=== PATIENT | female | born 1995 | race African-American/Black ===

== ENCOUNTER 2016-05-30 07:08 | Emergency (ER) | payer OTHER ==
[2016-05-30 07:17] VITALS: BP 109/64
--- NOTE | 2016-05-30 07:31 | UC ---
Throat Pain/Nasal Jeffrey HPI - HPI Summary HPI Summary: SORE THROAT X 4 DAYS , NO FEVER, NO CHILLS, + COUGH, NASAL CONGESTION - History of Current Complaint Chief Complaint: UCRespiratory Stated Complaint: SORE THROAT,FEVER Time Seen by Provider: 05/30/16 07:23 Hx Obtained From: Patient Hx Last Menstrual Period: 05/17/16 ?: No Onset/Duration: Sudden Onset, Lasting Days - 4, Still Present Severity: Moderate Cough: Nonproductive Associated Signs & Symptoms: Positive: Nasal Discharge. Negative: Sinus Discomfort, Fever, Rash - Allergies/Home Medications Allergies/Adverse Reactions: Allergies Allergy/AdvReac Type Severity Reaction Status Date / Time No Known Allergies Allergy Verified 05/30/16 07:12 Home Medications: Home Medications Ibuprofen TAB* [Advil TAB*] 400 mg PO Q6H PRN 05/30/16 [History Confirmed ] PMH/Surg Hx/FS Hx/Imm Hx Previously Healthy: Yes - Surgical History Surgical History: None - Family History Known Family History: Negative: Diabetes - Social History Alcohol Use: Occasionally Substance Use Type: None Smoking Status (MU): Never Smoked Tobacco Review of Systems Constitutional: Negative Skin: Negative Eyes: Negative ENT: Sore Throat, Nasal Discharge Respiratory: Cough Cardiovascular: Negative Gastrointestinal: Negative Genitourinary: Negative All Other Systems Reviewed And Are Negative: Yes Physical Exam Triage Information Reviewed: Yes Appearance: Well-Appearing, No Pain Distress, Well-Nourished Vital Signs: Initial Vital Signs Temp 98.3 F 05/30/16 07:13 Pulse 78 05/30/16 07:13 Resp 16 05/30/16 07:13 BP 109/64 05/30/16 07:13 Pulse Ox 100 05/30/16 07:13 Eye Exam: Normal Eyes: Positive: Conjunctiva Clear ENT: Positive: Normal ENT inspection, Hearing grossly normal, Pharynx normal, Nasal congestion, TMs normal. Negative: Pharyngeal erythema, Nasal drainage Neck: Positive: Supple, Nontender, No Lymphadenopathy Respiratory: Positive: Chest non-tender, Lungs clear, Normal breath sounds Cardiovascular: Positive: RRR, No Murmur, Pulses Normal Throat Pain/Nasal Course/Dx - Differential Dx/Diagnosis Provider Diagnoses: VIRAL PHARYNGITIS Discharge - Discharge Plan Condition: Stable Disposition: HOME Patient Education Materials: Pharyngitis (ED) Additional Instructions: NEGATIVE RAPID STREP VIRAL PHARYNGITIS , NO NEED FOR ABX CONT. WITH REST, INCREASE FLUID , TAKE IBUPROFEN NEEDED FOR PAIN AND FEVER FOLLOW UP NEEDED
== END 2016-05-30 07:45 | disposition home or self-care (01) ==
LOC: UCCORT 07:08
DX: J02.9 Acute pharyngitis, unspecified (principal); R09.81 Nasal congestion
CPT/HCPCS: 87651; 99201; G0463